=== PATIENT | female | born 2005 | race Caucasian/White ===

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

== ENCOUNTER 2024-04-23 10:01 | Outpatient (CLI) | payer OTHER, SELFPAY ==
--- NOTE | ~2024-04-23 | XR_ITS ---
XR sacroiliac joints min 3V Ordering provider: Terrie Gr MD History: . right side pain/right SI joint pain . Comparison: None. FINDINGS: BONES: No acute fracture or dislocation. JOINTS: The bilateral sacroiliac joint spaces appear well maintained. No bony fusion of the sacroilia c joints or bony erosions. SOFT TISSUES: Unremarkable. IMPRESSION: NO ACUTE OSSEOUS ABNORMALITY. NORMAL SACROILIAC JOINTS. Reviewed, dictated and finalized at location A.
--- NOTE | ~2024-04-23 | XR_ITS ---
XR abdomen/kub 1V 04/23/2024 10:33 INDICATION: Kidney stone pain. SI joint pain. TECHNIQUE: KUB COMPARISON: None FINDINGS: Bowel gas pattern is normal. There is no evidence of free air, mass, organomegaly, ascites or obstruction. No abnormal calculi are seen. The bones appear intact. No significant abnormality of the sacroiliac joints. IMPRESSION: 1: No acute abdominal abnormality identified. Reviewed, dictated and finalized at location B.
== END 2024-04-23 10:02 | disposition home or self-care (01) ==
LOC: ANHIMG 10:04
PROVIDERS: PCP Pediatrics; Visit Provider Pediatrics
DX: R10.31 Right lower quadrant pain (principal); M46.1 Sacroiliitis, not elsewhere classified
CPT/HCPCS: 72202; 74018

== ENCOUNTER 2025-02-12 13:50 | Emergency (ER) | payer OTHER, SELFPAY ==
[2025-02-12 13:58] VITALS: BP 118/73; PULSE 90; RESP 16; TEMP 36.7; O2SAT 100
--- NOTE | 2025-02-12 14:07 | ED.SKABFB ---
HPI - Skin/Abscess/Foreign Bdy General Chief complaint: Skin/Abscess/Foreign Body Stated complaint: Poison Jennifer Source: patient Mode of arrival: ambulatory Limitations: no limitations History of Present Illness HPI narrative: This patient is a 19-year-old female who presents to the clinic with complaints of poison jennifer rash to her bilateral legs for 2 days. She has been trying calamine Lotion [id number], but has had minimal relief. Related Data Home Medications ?Medication ?Instructions ?Recorded ?Confirmed ?Last Taken ?Type cetirizine 10 mg tablet (Zyrtec) 10 mg PO DAILY 01/19/23 01/19/23 Unknown History norethindrone 1 mg-ethinyl 1 tablet PO DAILY 01/19/23 01/19/23 Unknown History estradiol 20 mcg (21)-iron 75 mg (7) tablet (10/05 (28)) omeprazole 20 mg delayed 20 mg PO DAILY 01/19/23 01/19/23 Unknown History release,disintegrating tablet Allergies Allergy/AdvReac Type Severity Reaction Status Date / Time Penicillins Allergy Unknown Hives Verified 02/12/25 14:02 amoxicillin Allergy Hives Verified 01/19/23 11:18 Review of Systems Review of Systems: CONSTITUTIONAL: Denies body aches, fever, chills, or sweats. EYES: Denies visual changes, redness, or discharge. ENT: Denies rhinorrhea, congestion CARDIOVASCULAR: Denies chest pain, palpitations, or edema. RESPIRATORY: Denies cough or dyspnea. GASTROINTESTINAL: Denies abdominal pain, nausea, vomiting, or diarrhea. SKIN: ?Reports poison jennifer rash to bilateral lower legs. MUSCULOSKELETAL: Denies back pain, joint pain, or myalgia. NEUROLOGIC: Denies headache, numbness, tingling, or weakness. All systems reviewed & are unremarkable except as noted in HPI and below PMFSH Social History Social History (System 01/10/23 @ 14:38 by Ricci Naranjo) Smoking status: Never smoker Comments At time of signature, I have reviewed and agree with nursing past medical, surgical, social and family history unless otherwise noted. Please see nursing chart for further information. There is no relevant family history pertinent to the presenting complaint. Exam Narrative: GENERAL: Well-appearing HEAD: Normocephalic, atraumatic. EYES: ?conjunctivae clear, and EOMI. ENT: Mucous membranes moist. Oropharynx without edema, erythema or lesions. NECK: Supple. No lymphadenopathy CHEST: Clear to auscultation. HEART: Regular rate and rhythm. SKIN: Warm, dry. ?Erythemic raised rash noted to bilateral lower extremities consistent with poison jennifer. NEURO: ?Alert and oriented x3.? Course Course Level of Care: Express Care Visit Vital Signs Vital signs: Vital Signs Temperature 98.1 F 02/12/25 13:58 Pulse Rate 90 02/12/25 13:58 Respiratory Rate 16 02/12/25 13:58 Blood Pressure 118/73 02/12/25 13:58 Pulse Oximetry 100 02/12/25 13:58 Temperature 98.1 F 02/12/25 13:58 Pulse Rate 90 02/12/25 13:58 Respiratory Rate 16 02/12/25 13:58 Blood Pressure 118/73 02/12/25 13:58 Pulse Oximetry 100 02/12/25 13:58 Reviewed MDM - Skin/Abscess/Foreign Bdy MDM Narrative Medical decision making narrative: Discussed physical exam findings. Prednisone given for information. Advised supportive measures and signs/symptoms to go to the ER. Pt is appropriate for outpatient treatment and follow up. Differential Diagnosis Differential diagnosis: Likely eczema, insect bites, contact dermatitis and other (poison jennifer ) Critical Care Time Critical Care Time Critical Care Time: No Discharge Plan Discharge Clinical Impression: Allergic dermatitis due to poison jennifer Patient Disposition: Home Condition: Stable Instructions: Poison Jennifer (ED) Additional Instructions: Take steroids in the morning with food. Prevention is always better than treatment. Learn to identify poison jennifer, oak, and sumac and avoid it. Wear long sleeves, long pants, shoes, and socks. If you touched the plant, try to keep your hands away from your eyes, mouth, and face. Wash the skin thoroughly with soap and cool water as soon as possible. Scrub under the fingernails with a brush to prevent spreading of the resin to other parts of the body by touching or scratching. Remember to wash any clothing with soap and hot water as the resin can persist for many months and cause further dermatitis. You should NOT use antihistamine creams or lotions, anesthetic creams containing benzocaine, or antibiotic creams containing neomycin or bacitracin to the skin. These creams or ointments could make the rash worse. For some people, adding oatmeal to a bath, applying cool wet compresses, and applying calamine lotion may help to relieve itching. Once the blisters begin weeping fluid, astringents containing aluminum acetate (Burow's solution) and [place] may help to relieve the rash. IF symptoms get worse to follow up with your primary care provider or seek ER visit if you developing difficulty breathing, weakness, dizziness. Patient Language: Tamazight Prescriptions: New prednisone 10 mg tablet See Rx Instructions .ROUTE .COMPLEX Qty: 30 0RF Rx Instructions: 60mg PO daily on day 1, 40mg PO daily for days 2-4, 30 mg PO daily on days 5-6, 20mg PO daily on days 7-8, 10mg PO daily on days 9-10. No Action cetirizine [Zyrtec] 10 mg Tablet 10 mg PO DAILY norethindrone-e.estradiol-iron [Junel FE 10/05 (28)] 1 mg-20 mcg (21)/75 mg (7) tablet 1 tablet PO DAILY omeprazole 20 mg Tablet,Disintegrat, Delay Rel 20 mg PO DAILY Follow-up/Referrals: UNKNOWN,DOCTOR [Primary Care Provider] - Time of Disposition: 14:18
== END 2025-02-12 14:47 | disposition home or self-care (01) ==
DX: L23.7 Allergic contact dermatitis due to plants, except food (principal); J45.909 Unspecified asthma, uncomplicated; K21.9 Gastro-esophageal reflux disease without esophagitis; R01.1 Cardiac murmur, unspecified
CPT/HCPCS: 99213; G0463